=== PATIENT | female | born 1990 | race Caucasian/White ===

== ENCOUNTER 2019-04-14 10:16 | Emergency (ER) | payer MEDICAID, OTHER ==
[~2019-04-14] VITALS: Ht 157.5 cm; Wt 49.4 kg
[2019-04-14 10:29] VITALS: BP 113/73
--- NOTE | 2019-04-14 10:34 | NUR ---
Patient ambulated to bed 4 with family. RN evaluating patient at bedside.
--- NOTE | 2019-04-14 11:00 | NUR ---
PT BIB WITH C/O WEAKNESS SINCE THIS MORNING, LEFT ARM NUMBNESS, + DIZZINESS, BLURRED VISION. DENIES ANY PMH. NKA. DENIES ANY NAUSEA, VOMIOTING, FEVER, ABD PAIN AT THIS TIME. ER MD TO SEE THE PT.
[2019-04-14] MEDS ORDERED: NACL 0.9% 1,000 ML IV ONE (11:15)
[2019-04-14 11:29] LABS: BASOPHILS % (AUTO) 0.3 % (0.0-2.0); EOSINOPHILS % (AUTO) 0.5 % (0.0-4.0); HEMATOCRIT 38.3 % (36-48); LYMPHOCYTES # (AUTO) 1.2 K/uL (2.5-16.5); LYMPHOCYTES % (AUTO) 19.5 % (20.5-51.1); MEAN CORPUSCULAR HEMOGLOBIN 29 pg (27-31); MEAN CORPUSCULAR HGB CONC 34 g/dL (33-37); MEAN CORPUSCULAR VOLUME 84.6 fL (80-94); MONOCYTES # (AUTO) 0.4 K/uL (0.8-1.0); MONOCYTES % (AUTO) 5.5 % (1.7-9.3); NEUTROPHILS # (AUTO) 4.7 K/uL (1.8-7.7); NEUTROPHILS % (AUTO) 74.2 % (42.2-75.2); PLATELET COUNT (AUTO) 164 K/uL (140-450); RED BLOOD CELL COUNT(AUTO) 4.52 MIL/uL (4.20-5.40); RED CELL DISTRIBUTION WIDTH 13.1 % (11.6-13.7); WHITE BLOOD COUNT (AUTO) 6.4 K/uL (4.8-10.8)
[2019-04-14 11:41] LABS: ANION GAP 11.8 (8-16); CREATININE 0.7 mg/dL (0.6-1.3); POTASSIUM 3.8 mmol/L (3.5-5.1)
[2019-04-14 11:47] LABS: ALBUMIN 3.5 g/dL (3.4-5.0); MAGNESIUM 1.7 mg/dL (1.8-2.4); TOTAL BILIRUBIN 0.3 mg/dL (0.0-1.0)
--- NOTE | 2019-04-14 11:48 | NUR ---
PT WENT TO X-RAY AND FOR CAT SCAN.
[2019-04-14] MEDS ORDERED: MAGNESIUM OXIDE 400 MG TAB PO ONE (12:25)
--- NOTE | 2019-04-14 12:57 | NUR ---
CALLED PHARMACY FOR THE MEDS. WILL DELIVER.
[2019-04-14 13:21] LABS: APPEARANCE,URINE SLIGHTLY HAZY (CLEAR); BILIRUBIN,URINE NEGATIVE (NEGATIVE); BLOOD, URINE 1+ (NEGATIVE); COLOR,URINE YELLOW (YELLOW); LEUKOCYTE ESTERASE ,URINE NEGATIVE (NEGATIVE); NITRITE, URINE NEGATIVE (NEGATIVE); UGLUCOSE NEGATIVE (NEGATIVE)
[2019-04-14 13:27] LABS: RBC,URINE 0-5 /HPF (0-5); URINE AMORPHOUS URATE 1+ /HPF (None Seen); WBC,URINE 0-5 /HPF (0-5)
--- NOTE | 2019-04-14 14:00 | NUR ---
DISCONNECETED TO PT FROM IVF. PT WENT TO RESTROOM. PT SATBLE AT THIS TIME. WILL CONTINUE TO MONITOR PT.
[2019-04-14] MEDS ORDERED: ASPIRIN 81 MG TAB.CHEW PO ONE (14:20)
--- NOTE | 2019-04-14 16:30 | NUR ---
PT RESTING COMFORTABLY IN HER BED. NO DISTRESS NOTED.
--- NOTE | 2019-04-14 17:16 | NUR ---
CHECKED ON PT, LYING [id number] IN HER BED. INFORMED HER GOING TO BE TRANSFERRED TO OTHER HOSPITAL, SIGNED THE TRANSFER PAPER. DENIES ANY DIZINESS, ANY BLURRY VISION, PAIN. STATES FEELS MORE BETTER THAN BEFORE. WENT TO REST ROOM AT THIS TIME. WILL CONTINUE TO MONITOR PT.
--- NOTE | 2019-04-14 19:00 | NUR ---
CALLEDE [facility] FOR FOOD TRAY. LEFT VOICE MESSAGE.
--- NOTE | 2019-04-14 19:25 | NUR ---
PT PROVIDED WITH GRAM CRACKERS AND APPLE JUICE. CALLED [facility] FOR FOOD TRAY.
--- NOTE | 2019-04-14 20:00 | NUR ---
REPORT GIVEN TO DANGELO ZELAYA AT [facility] [phone]. 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 PT AWARE BEING TRANSFERED TO ANOTHER FACILITY.
--- NOTE | 2019-04-14 21:15 | NUR ---
Patient to be transferred to [facility]. Is being transferred due to continuation of care. Receiving facility has accepting physician and available space. ER physician has signed transfer form. Patient or responsible constitution party has agreed to transfer and signed form. Patient belongings inventoried and will be sent with patient. Copy of nursing notes, lab reports, EKG, Physicians Orders and X-rays to be sent with patient. Report called to DANGELO Archer at receiving facility. [facility] ambulance service has been called for transfer. ETA is 40 mins.
--- NOTE | 2019-04-14 21:35 | NUR ---
PM RN GIVEN REPORT. PT STABLE. WAITING FOR TRANSPORT.
--- NOTE | 2019-04-14 21:35 | NUR ---
RECEIVED REPORT FROM DANGELO CARTER. TRANSFER OF CARE AT THIS TIME.
--- NOTE | 2019-04-14 21:38 | NUR ---
PT AWAKE, ALERT, RESTING COMFORTABLY IN BED WITH VSS. AND CHILDREN ARE AT BEDSIDE. DENIES PAIN, DISCOMFORT AT THIS TIME.
[2019-04-14 21:48] VITALS: BP 108/70
--- NOTE | 2019-04-14 21:48 | NUR ---
[facility] arrived for transport to [facility]. Pt report given to EMS. Pt is awake, A/O X4 with VSS. Transfer of care at this time.
--- NOTE | 2019-04-14 22:00 | NUR ---
[facility] TO LET DANGELO ZELAYA KNOW PT IS EN ROUTE TO FACILITY.
== END 2019-04-14 21:48 | disposition short-term general hospital (02) ==
LOC: MED 10:16
DX: G45.9 Transient cerebral ischemic attack, unspecified (principal); Z98.890 Other specified postprocedural states
CPT/HCPCS: 36415; 70450; 71045; 80053; 81001; 81025; 82948; 83735; 84484; 85025; 93005; 99285; J7030